=== PATIENT | male | born 1995 | race Caucasian/White ===

== ENCOUNTER 2023-06-23 08:47 | Emergency (ER) | payer MEDICAID, SELFPAY ==
[2023-06-23 09:16] VITALS: BP 131/73; PULSE 82; RESP 16; TEMP 36.3; O2SAT 98; BMI 26.5
--- NOTE | 2023-06-23 09:27 | ED.GENADULT ---
[facility] - General Adult General Time Seen by Provider: 09:27 Date Seen: 06/23/23 Chief complaint: Dental/Oral/Mouth Injury/Pain Stated complaint: tooth pain Time Seen by Provider: 06/23/23 09:15 Source: patient Mode of arrival: ambulatory Limitations: no limitations History of Present Illness HPI narrative: Patient is a 28-year-old male with no pertinent medical problems presented emergency department for tooth pain. He states he needs a root canal but cannot get scheduled for later this week. He states he missed his previous appointment in April. He started having throbbing pain to his right lower back most molar on Friday. He states his pain is worsened his previous pain. He talk to his dentist within the told to come the emergency department to be evaluated. He states he has taken Tylenol ibuprofen for pain and ibuprofen has been helping the most with the pain. States he does not need anything for pain at this time. Denies fevers, chills, lightheadedness, sore throat, difficulty swallowing, difficulty breathing. Related Data Home Medications Medication Instructions Recorded Confirmed Wellbutrin 06/23/23 Zyprexa 06/23/23 acne antibiotic 06/23/23 Previous Rx's Medication Instructions Recorded amoxicillin 500 mg capsule 500 mg PO TID #15 caps 06/23/23 Allergies Allergy/AdvReac Type Severity Reaction Status Date / Time Sulfa (Sulfonamide Allergy Unknown Verified 06/23/23 09:20 Antibiotics) Review of Systems Narrative: Negative unless otherwise stated in [facility] PFS PFS Social History Smoking Status: Current every day smoker How often do you have a drink containing alcohol: never AUDIT-C Alcohol total score: 0 Non-prescribed substance use: denies use Exam Narrative: Exam Narrative: Const: Well-nourished, Well-developed, in mild distress Eyes: PERRL, no conjunctival injection, and symmetrical lids ENMT: Atraumatic external nose and ears. Moist mucous membranes, poor dentition and with obvious cavity seen on Tooth 32. Mild swelling noted around this tooth The uvula midline. Neck: Symmetric, trachea midline, No thyromegaly. CVS: RRR, No murmurs or gallops. Peripheral pulses 2+ and equal in all extremities MSK:Extremities w/o deformity, Normal Active ROM Skin: Warm, Dry. No rashes or lesions. Neuro: Normal Muscle tone, No focal neurological deficits. Psych: Awake, Alert, & Oriented x3. Appropriate mood and affect. Const: Vital Signs, click to edit/add: Vital Signs - 24 hr 06/23/23 09:16 Temperature 97.3 F L Pulse Rate [Pulse Oximeter] 82 Respiratory Rate 16 Blood Pressure [Le ft Upper Arm] 131/73 Pulse Oximetry 98 Oxygen Delivery Me thod Room Air Course Vital Signs Vital signs: Initial Vital Signs Temperature 97.3 F L 06/23/23 09:16 Temperature Source Temporal Artery Scan 06/23/23 09:16 Pulse Rate 82 06/23/23 09:16 Respiratory Rate 16 06/23/23 09:16 Blood Pressure 131/73 06/23/23 09:16 Blood Pressure Mean 92 06/23/23 09:16 Blood Pressure Position Sitting 06/23/23 09:16 Pulse Oximetry 98 06/23/23 09:16 Oxygen Delivery Method Room Air 06/23/23 09:16 Vital Signs Temperature 97.3 F L 06/23/23 09:16 Pulse Rate 82 06/23/23 09:16 Respiratory Rate 16 06/23/23 09:16 Blood Pressure 131/73 06/23/23 09:16 Pulse Oximetry 98 06/23/23 09:16 Oxygen Delivery Method Room Air 06/23/23 09:16 Temperature 97.3 F L 06/23/23 09:16 Pulse Rate 82 06/23/23 09:16 Respiratory Rate 16 06/23/23 09:16 Blood Pressure 131/73 06/23/23 09:16 Pulse Oximetry 98 06/23/23 09:16 Oxygen Delivery Method Room Air 06/23/23 09:16 Medical Decision Making [facility] Narrative Medical decision making narrative: Patient is a 28-year-old male presenting to the emergency department for tooth pain. He has an obvious cavity on tooth 32. He he states he is working on scheduling a root canal. Patient denies fevers or any other systemic symptoms. States his only symptom right now is urine but tooth pain. He has no systemic signs of deep neck space infections. No signs of spreading infection. He does have a localized infection around the tooth in question. Patient was offered pain medication but he declined. he was started on amoxicillin and discharged home. He is agreeable to this plan. Discharge Plan Discharge Clinical Impression: Dental caries Patient Disposition: Home, Self-Care Condition: Stable Instructions: Tooth Extraction (DC) Additional Instructions: Follow-up with your dentist. Return for new or worsening symptoms. Take antibiotics as prescribed. Prescriptions: New amoxicillin 500 mg capsule 500 mg PO TID Qty: 15 0RF No Action Wellbutrin Zyprexa acne antibiotic Stand Alone Forms: MyHealth Info Instructions
[2023-06-23] MEDS: AMOXICILLIN 250 MG CAPSULE 500 MG PO (09:43)
== END 2023-06-23 09:52 | disposition home or self-care (01) ==
PROVIDERS: Emergency Provider Student in an Organized Health Care Education/Training Program
DX: K02.9 Dental caries, unspecified (principal)
CPT/HCPCS: 99282; 99283; A9270